=== PATIENT | male | born 1955 | race Caucasian/White ===

== ENCOUNTER 2020-04-19 12:32 | Emergency (ER) | payer OTHER ==
[~2020-04-19] VITALS: Ht 175.3 cm; Wt 77.0 kg
[2020-04-19] MEDS ORDERED: ACETAMINOPHEN 325MG TABLET PO ONE (13:00)
[2020-04-19] MEDS ORDERED: IBUPROFEN 400MG TABLET PO ONE (13:00)
[2020-04-19 13:06] VITALS: BP 117/88
== END 2020-04-19 13:25 | disposition home or self-care (01) ==
LOC: ER 12:32
DX: S51.811A Laceration without foreign body of right forearm, initial encounter (principal); W10.8XXA Fall (on) (from) other stairs and steps, initial encounter; Y93.89 Activity, other specified; Y92.89 Other specified places as the place of occurrence of the external cause
CPT/HCPCS: 99283